=== PATIENT | female | born 1960 | race Caucasian/White ===

== ENCOUNTER → 2020-02-27 | Outpatient (CLI) | payer OTHER ==
[2020-02-27 11:11] LABS: BASO % 0.2 % (0.0-1.0); EOS # 0.1 10*3/uL (0.0-0.4); EOS % 1.5 % (1.0-4.0); HEMATOCRIT 42.6 % (37.0-47.0); LYMPH % 21.4 % (27.0-41.0); MEAN CELL VOLUME 98.2 fl (81.0-99.0); MEAN CORPUSCULAR HGB 34.3 pg (27.0-31.0); MONO # 0.7 10*3/uL (0.1-1.0); MONO % 7.3 % (3.0-9.0); NEUT # 6.4 10*3/uL (2.3-7.9); NEUT % 69.3 % (47.0-73.0); PLATELET COUNT AUTOMATED 267 10*3/uL (130-400); RED BLOOD COUNT 4.34 10*6/uL (4.10-5.10); RED CELL DISTRI WIDTH 12.3 % (0-14.5); WHITE BLOOD COUNT 9.3 10*3/uL (4.8-10.8)
[2020-02-27 11:39] LABS: ALBUMIN 4.3 gm/dl (3.1-4.5); ALKALINE PHOSPHATASE 65 U/L (45-117); BUN 6 mg/dl (7-24); CHLORIDE 94 mmol/L (98-107); CHOLESTEROL 254 mg/dL (<200); CREATININE 0.69 mg/dL (0.55-1.02); HDL CHOLESTEROL 84 mg/dl (40-60); LDL CHOLESTEROL 143 mg/dL (9-159); POTASSIUM 3.8 mmol/L (3.5-5.1); SGOT/AST 14 IU/L (3-35); SGPT/ALT 16 U/L (12-78); SODIUM 128 mmol/L (136-145); TOTAL PROTEIN 8.4 gm/dL (6.4-8.2); TRIGLYCERIDES 133 mg/dl (<150); VLDL CHOLESTEROL 27 mg/dL (6-40)
[2020-02-27 11:44] LABS: FREE T4 0.89 ng/dl (0.76-1.46); THYROID STIM HORMONE (HS) 0.896 uIU/ml (0.358-4.75)
== END | disposition home or self-care (01) ==
LOC: LAB 00:43 → US 11:30 → LAB 11:30
PROVIDERS: ATTEND Internal Medicine
DX: Z12.39 Encounter for other screening for malignant neoplasm of breast (principal); I10 Essential (primary) hypertension; R42 Dizziness and giddiness; E55.9 Vitamin D deficiency, unspecified; Z98.82 Breast implant status; Z45.812 Encounter for adjustment or removal of left breast implant; Z45.811 Encounter for adjustment or removal of right breast implant